=== PATIENT | female | born 1945 | race Caucasian/White ===

== ENCOUNTER 2020-03-12 19:08 | Observation (INO) | payer MEDICARE, OTHER ==
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
[2020-03-12 20:15] LABS: Basophils % (A) 1 %; Eosinophils # (A) 0.1 k/uL (0-0.7); Eosinophils % (A) 2 %; HCT 47.2 % (34.0-46.0); HGB 15.5 gm/dL (11.4-16.0); Lymphocytes % (A) 16 %; MCH 29.3 pg (25.0-35.0); MCHC 32.8 g/dL (31.0-37.0); MCV 89.3 fL (80.0-100.0); Mean Platelet Volume 8.3; Monocytes # (A) 0.3 k/uL (0-1.0); Monocytes % (A) 5 %; Neutrophils # (A) 4.9 k/uL (1.3-7.7); Neutrophils % (A) 76 %; Platelet Count 231 k/uL (150-450); RBC 5.29 m/uL (3.80-5.40); RDW 12.8 % (11.5-15.5); WBC 6.4 k/uL (3.8-10.6)
[2020-03-12 20:20] LABS: Appearance,Urine Cloudy (Clear); Bacteria,Urine Moderate /hpf; Bilirubin,Urine Negative (Negative); Blood,Urine Negative (Negative); Color,Urine Light Yellow; Glucose,Urine (UA) 4+ (Negative); Ketones,Urine 1+ (Negative); Leukocyte Esterase,Urine Large (Negative); Mucus,Urine Occasional /hpf; Nitrite,Urine Negative (Negative); Protein,Urine Negative (Negative); RBC,Urine 8 /hpf (0-5); Specific Gravity,Urine 1.026 (1.001-1.035); Squamous Epithelial Cell,Urine 1 /hpf (0-4); Urobilinogen,Urine <2.0 mg/dL (<2.0); WBC,Urine 162 /hpf (0-5)
[2020-03-12 20:24] LABS: African American GFR (CKD) >90 (>60 ml/min/1.73 sqM); Alcohol <10 mg/dL; Anion Gap 10 mmol/L; Blood Urea Nitrogen 16 mg/dL (7-17); Calcium 9.9 mg/dL (8.4-10.2); Carbon Dioxide 22 mmol/L (22-30); Chloride 102 mmol/L (98-107); Glucose 396 mg/dL (74-99); Non-African American GFR(CKD) 81 (>60 ml/min/1.73 sqM); Sodium 134 mmol/L (137-145)
[2020-03-12 20:29] LABS: Amphetamine Screen,Urine Not Detected (NotDetected); Barbiturate Screen,Urine Not Detected (NotDetected); Benzodiazepines Screen,Urine Not Detected (NotDetected); Cocaine Screen,Urine Not Detected (NotDetected); Methadone Screen, Urine Not Detected (NotDetected); Opiate Screen,Urine Not Detected (NotDetected); Oxycodone Screen, Urine Not Detected (NotDetected); Phencyclidine Screen,Urine Not Detected (NotDetected); Tricyclic Antidepressant,Urine Not Detected (NotDetected); Urn Cannabinoid Scrn Not Detected (NotDetected)
[2020-03-12] MEDS ORDERED: CEPHALEXIN 500 MG CAP PO STA (20:41)
[2020-03-12] MEDS ORDERED: cefTRIAXone IN SWFI 1,000 MG/10 ML SYRINGE IVP STA (20:58)
[2020-03-12] MEDS ORDERED: SODIUM CHLORIDE 0.9% 1,000 ML IV ONE (21:04)
[2020-03-12] MEDS ORDERED: ACETAMINOPHEN TAB 325 MG TAB PO PRN (21:51)
[2020-03-12] MEDS ORDERED: NALOXONE 0.4 MG/ML 1 ML VIAL IV PRN (21:51)
[2020-03-12] MEDS ORDERED: ONDANSETRON 4 MG/2 ML VIAL IVP PRN (21:51)
[2020-03-12] MEDS ORDERED: LORazepam 2 MG/ML INJ IV STA (22:34)
[2020-03-12 23:16] VITALS: RESP 16
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
[2020-03-13 02:12] LABS: Glucose,Whole Blood 260 mg/dL (75-99)
[2020-03-13] MEDS: INSULIN ASPART (NovoLOG) 100 UNIT/ML VIAL SQ SCH ×5 (02:22→17:11)
[2020-03-13 04:17] VITALS: BP 113/72; TEMP 98
[2020-03-13 08:04] LABS: Glucose,Whole Blood 271 mg/dL (75-99)
[2020-03-13] MEDS: HEPARIN SODIUM,PORCINE 5,000 UNIT/ML 1 ML VIAL SQ SCH ×3 (08:08→15:17)
[2020-03-13] MEDS: PANTOPRAZOLE 40 MG/10 ML VIAL IV SCH ×2 (08:08→08:18)
[2020-03-13] MEDS ORDERED: MULTIVITAMINS, THERA 1 EACH TAB PO SCH (09:00)
[2020-03-13 12:49] VITALS: PULSE 70
--- NOTE | 2020-03-13 14:00 | P.DS ---
Providers Date of admission: 03/12/20 20:53 Expected date of discharge: 03/13/20 Attending physician: Maia Jeronimo MD Consults: 03/12/20 21:51 Consult Physician Stat Consulting Provider: Macrina Hancock Consult Reason/Comments: Manic episode, uti Do you want consulting provider notified?: Yes Primary care physician: Stated None Hospital Course: This is a 74-year-old female who presented to the emergency room with acute psychosis and confusion. Patient was evaluated in the ER and was found to have uncomplicated UTI. She was started on IV ceftriaxone. Her overall condition improved significantly. She was seen and evaluated by psych. She will be transferred to the psych floor for further management. Urine cultures still pending. Would finish antibiotic course with oral Keflex. For further details about this hospitalization please refer to the electronic chart. Patient Condition at Discharge: Stable Plan - Discharge Summary Discharge Rx Participant: No New Discharge Prescriptions: New Cephalexin [Keflex] 500 mg PO Q6HR 3 Days #12 cap No Action Multivitamins, Thera [Multivitamin (formulary)] 1 tab PO DAILY Elderberry Vitamin (Unknown Strength) 1 tab PO DAILY Discharge Medication List Elderberry Vitamin (Unknown Strength) 1 tab PO DAILY 03/12/20 [History] Multivitamins, Thera [Multivitamin (formulary)] 1 tab PO DAILY 03/12/20 [History] Cephalexin [Keflex] 500 mg PO Q6HR 3 Days #12 cap 03/13/20 [Rx] Follow up Appointment(s)/Referral(s): None,Stated [Primary Care Provider] - 1-2 days Discharge Disposition: TRANSFER TO PSYCH HOSP/UNIT
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
[2020-03-13] MEDS ORDERED: ZIPRASIDONE 20 MG VIAL IM STA (19:57)
== END 2020-03-13 21:11 ==
LOC: SUPCPDRO 19:08 → EC 19:08 → 6NMEDSUR 20:53
PROVIDERS: ADMIT Internal Medicine; ATTEND Internal Medicine
DX: R41.0 Disorientation, unspecified (principal); F31.9 Bipolar disorder, unspecified; E11.9 Type 2 diabetes mellitus without complications; E66.3 Overweight; F23 Brief psychotic disorder; N39.0 Urinary tract infection, site not specified; Z87.891 Personal history of nicotine dependence; Z91.14 Patient's other noncompliance with medication regimen; Z91.19 Patient's noncompliance with other medical treatment and regimen; Z68.34 Body mass index [BMI] 34.0-34.9, adult
CPT/HCPCS: 96365; 96361; 96375; 99285; 36415; 80048; 85025; 81001; 80306; 87086; 87077; 87186; G0378 ×2; G0480; J0696 ×2; J3486; 80320

== ENCOUNTER 2020-03-13 18:43 | Inpatient (IN) | payer MEDICARE ==
[2020-03-13] MEDS ORDERED: ACETAMINOPHEN TAB 325 MG TAB PO PRN (20:58)
[2020-03-13] MEDS ORDERED: MAG HYDROX/AL HYDROX/SIMETH 30 ML CUP PO PRN (20:58)
[2020-03-13] MEDS ORDERED: MAGNESIUM HYDROXIDE 2,400 MG/10 ML CUP PO PRN (20:58)
[2020-03-13] MEDS ORDERED: LORazepam 1 MG TAB PO PRN (20:58)
[2020-03-14 01:00] LABS: Albumin 4.2 g/dL (3.5-5.0); Bilirubin, Delta 0.3 mg/dL (0.0-0.2); Bilirubin,Unconjugated 0.2 mg/dL (0.0-1.1); Total Bilirubin 0.5 mg/dL (0.2-1.3)
[2020-03-14 08:00] LABS: Glucose,Whole Blood 239 mg/dL (75-99)
[2020-03-14] MEDS: INSULIN ASPART (NovoLOG) 100 UNIT/ML VIAL SQ SCH ×4 (08:14→21:27)
[2020-03-14] MEDS ORDERED: MULTIVITAMINS, THERA 1 EACH TAB PO SCH (09:00)
[2020-03-14] MEDS: MULTIVITAMINS, THERA 1 EACH TAB PO SCH (10:11)
[2020-03-14 12:46] LABS: Glucose,Whole Blood 260 mg/dL (75-99)
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
[2020-03-14 18:12] LABS: Hemoglobin A1C 12.3 % (4.0-6.0)
[2020-03-14 18:26] LABS: Glucose,Whole Blood 227 mg/dL (75-99)
--- NOTE | 2020-03-14 18:30 | P.MDCNMH ---
History of Present Illness H&P Date: 03/14/20 This is a 74-year-old female who presented to the emergency room with acute psychosis and confusion on March 12. Patient was evaluated in the ER and was found to have uncomplicated UTI. She was admitted to the medical unit for treatment. She was started on IV ceftriaxone. Her overall condition improved significantly. She was seen and evaluated by psych. She was transferred to the psych floor for further management on March 13. Patient was seen in the mental health unit. Patient has flight of ideas and is unable to effectively communicate. She denies any abdominal pain. She denies any chest pain, shortness breath or palpitations. No nausea or vomiting. No fever or chills. Review of lab work shows A1c of 12.3. Lipid panel shows triglyceride of 258, total cholesterol 250, LDL 142. TSH is 0.223. Review of Systems Pertinent positives and negatives as discussed in HPI, a complete review of systems was performed and all other systems are negative. Past Medical History Past Medical History: Unable to Obtain, Diabetes Mellitus Additional Past Medical History / Comment(s): Previously on metformin, but reportedly non compliant. History of Any Multi-Drug Resistant Organisms: Unobtainable Past Surgical History: Unable to Obtain Past Psychological History: Unable to Obtain Smoking Status: Unknown if ever smoked Past Alcohol Use History: None Reported Past Drug Use History: None Reported - Past Family History Mother Family Medical History: Unable to Obtain Father Family Medical History: Unable to Obtain Medications and Allergies Home Medications Medication Instructions Recorded Confirmed Type Elderberry Vitamin (Unknown 1 tab PO DAILY 03/12/20 03/13/20 History Strength) Multivitamins, Thera [Multivitamin 1 tab PO DAILY 03/12/20 03/13/20 History (formulary)] Cephalexin [Keflex] 500 mg PO Q6HR 3 Days #12 cap 03/13/20 03/13/20 Rx Allergies Allergy/AdvReac Type Severity Reaction Status Date / Time No Known Allergies Allergy Verified 03/13/20 21:00 Physical Exam Vitals: Vital Signs Temp Pulse Resp BP Pulse Ox 03/13/20 21:10 97.6 F 98 16 138/62 94 L General: [non toxic], [no distress], [appears at stated age] Derm: [warm], [dry] Head: [atraumatic], [normocephalic], [symmetric] Eyes: [EOMI], [no lid lag], [anicteric sclera] Mouth: [no lip lesion], [mucus membranes moist] Cardiovascular: [S1S2 reg], [no murmur], [positive DP pulse bilateral], Lungs: [CTA bilateral], [no rhonchi, no rales] , [no accessory muscle use] Abdominal: [soft], [ nontender to palpation], [no guarding], [no appreciable organomegaly] Ext: [no gross muscle atrophy], [no edema], [no contractures] Neuro: [Uncooperative] Psych: [Alert], [oriented], [flight of ideas] Cranial Nerve Examination - Cranial Nerves Cranial Nerve II- Optic: Intact Cranial Nerve III- Oculomotor: Intact Cranial Nerve IV- Trochlear: Intact Cranial Nerve V- Trigeminal: Intact Cranial Nerve - Abducens: Intact Cranial Nerve VII- Facial: Intact Cranial Nerve VIII- Auditory: Intact Cranial Nerve IX- Glossopharyngeal: Intact Cranial Nerve X- Vagus: Intact Cranial Nerve XI- Accessory: Intact Cranial Nerve XII- Hypoglossal: Intact Results Labs: Abnormal Lab Results - Last 24 Hours (Table) 03/12/20 03/12/20 03/14/20 Range/Units 20:05 20:05 07:57 POC Glucose (mg/dL) 239 H (75-99) mg/dL Hemoglobin A1c 12.3 H (4.0-6.0) % Delta Bilirubin 0.3 H (0.0-0.2) mg/dL Alkaline Phosphatase 142 H (38-126) U/L Triglycerides 258 H (<150) mg/dL Cholesterol 250 H (<200) mg/dL LDL Cholesterol, Calc 142 H (0-99) mg/dL TSH 0.223 L (0.465-4.680) mIU/L 03/14/20 Range/Units 12:42 POC Glucose (mg/dL) 260 H (75-99) mg/dL Hemoglobin A1c (4.0-6.0) % Delta Bilirubin (0.0-0.2) mg/dL Alkaline Phosphatase (38-126) U/L Triglycerides (<150) mg/dL Cholesterol (<200) mg/dL LDL Cholesterol, Calc (0-99) mg/dL TSH (0.465-4.680) mIU/L Assessment and Plan Assessment: UTI Diabetes mellitus with hyperglycemia Dyslipidemia Low TSH Patient's urine culture shows gram-negative bacilli. Urine cultures pending. Received Rocephin on the medical unit. Continue Bactrim for 2 more days. Patient has been placed on insulin sliding scale. Apparently, she has been refusing her insulin. Continue regular Accu-Cheks. Hypoglycemic precautions. Patient would benefit from dietary modification. She would also benefit from a statin. We will defer this decision to her PCP. Her TSH is low. Free T4 is pending. Thank you for this consult. Please call with any additional questions or concerns.
[2020-03-14 20:17] LABS: Glucose,Whole Blood 297 mg/dL (75-99)
[2020-03-14] MEDS: SULFAMETHOX-TMP 800-160MG 1 EACH TAB PO SCH (21:29)
[2020-03-15 08:01] LABS: Glucose,Whole Blood 259 mg/dL (75-99)
[2020-03-15] MEDS: INSULIN ASPART (NovoLOG) 100 UNIT/ML VIAL SQ SCH ×4 (08:06→20:35)
[2020-03-15] MEDS: SULFAMETHOX-TMP 800-160MG 1 EACH TAB PO SCH ×3 (08:08→20:36)
[2020-03-15] MEDS: MULTIVITAMINS, THERA 1 EACH TAB PO SCH (08:08)
--- NOTE | 2020-03-15 11:26 | P.PN ---
Progress Note - Text Progress Note Date: 03/15/20 I reviewed medical records ,did interview patient and case was discussed in treatment team LABS: Review of lab work shows A1c of 12.3. Lipid panel shows triglyceride of 258, total cholesterol 250, LDL 142. TSH is 0.223. I reviewed medical consult ASSESSMENT (((:UTI Diabetes mellitus with hyperglycemia Dyslipidemia Low TSH Patient's urine culture shows gram-negative bacilli. Urine cultures pending. Received Rocephin on the medical unit. Continue Bactrim for 2 more days. Patient has been placed on insulin sliding scale. Apparently, she has been refusing her insulin. Continue regular Accu-Cheks. Hypoglycemic precautions. Patient would benefit from dietary modification. She would also benefit from a statin. We will defer this decision to her PCP. Her TSH is low. Free T4 is pending.)) Patient is non compliant with Tx for her medical problems ,refusing Insulin ,refusing to watch her diet,her blood glucose today 259,she refused her Bactrim and Insulin this morning Interval history: Patient was pushing her wheel chair ,stated that she has to be discharged because she is not "Aline Pauline",stated that she needs to contact criminal attorney to advocate for her ,stated that there is conspiracy against her to lock her here so "I can not advocate for mentally ill people" Mental status exam: Patient was wearing hospital gown, fair grooming and hygiene, good eyes contact ,hyperverbal ,circumstantial ,loose of association ,illogical ,stated mood "I just want to go home"affect is irritable ,reports persecutory delusion ,suspicious ,paranoia, denies any hallucination ,denies any suicidal or homicidal ideation ,very concrete in her thinking insight and judgment are impaired ASSESSMENT:Bipolar disorder ,manic with psychotic feature ,poor compliance with medication PLAN: Patient continues to meet criteria for inpatient psychiatric admission for symptom stabilization and safety. PRN medications till deferral meeting and probate court
[2020-03-15 17:55] LABS: Glucose,Whole Blood 269 mg/dL (75-99)
[2020-03-16] MEDS: INSULIN ASPART (NovoLOG) 100 UNIT/ML VIAL SQ SCH ×3 (08:13→22:04)
[2020-03-16] MEDS: MULTIVITAMINS, THERA 1 EACH TAB PO SCH (08:15)
[2020-03-16] MEDS: SULFAMETHOX-TMP 800-160MG 1 EACH TAB PO SCH (08:16)
--- NOTE | 2020-03-16 12:10 | PN ---
PROGRESS NOTE DATE OF SERVICE: 03/16/2020 CHIEF COMPLAINT: The patient was admitted on petition completed by her due to the patient being agitated, having disorganized behavior and having delusions. INTERVAL HISTORY: Patient continues to be quite intense in her manner. Yesterday she was out on the unit. She showed elevated mood. She would talk randomly to people. She would make comments that were disconnected from things going on around her. She attended one group. There was a note from group staff as follows "the patient required additional verbal prompts in order to appropriately participate in group. The patient was redirectable." She slept 5 hours last night. Staff noted that at one point she spent quite a bit of time in the bathroom "puttering" where she seemed to keep herself busy without doing anything that was clearly productive. Today she has been up. She continues to be fairly intense in her manner. Her mood is elevated. She is hyperverbal. She does respond to staff support. She has been cooperative with care, though continues to decline taking any regular medications. MENTAL STATUS: Patient was in her wheelchair. She gave fair eye contact. She was quite restless. She answered questions with direct responses, though typically she would veer off and make comments that were disconnected from the subject at hand. Her mood was elevated. She had some level of distress relating to her manic symptoms. She did not clearly present with psychotic symptoms. She voiced no thoughts of harm. On cognitive exam she was oriented x3 and alert. She was able to give details of recent events that were consistent with what was documented in the medical record. ASSESSMENT: I will continue the current diagnosis and treatment plan. We will continue to make efforts to engage the patient in individual and group therapeutic activities. I strongly encouraged the patient to consider getting started on oral medications to help advance her welfare and health condition. I reviewed her situation in regard to involuntary treatment process. We will focus on stabilization and discharge planning. STELLA / JOSE: [id number] /
[2020-03-17] MEDS: INSULIN ASPART (NovoLOG) 100 UNIT/ML VIAL SQ SCH ×3 (08:26→13:47)
[2020-03-17] MEDS: MULTIVITAMINS, THERA 1 EACH TAB PO SCH (09:02)
[2020-03-18] MEDS: INSULIN ASPART (NovoLOG) 100 UNIT/ML VIAL SQ SCH ×6 (08:13→20:17)
[2020-03-18] MEDS: MULTIVITAMINS, THERA 1 EACH TAB PO SCH (09:55)
--- NOTE | 2020-03-18 10:59 | PN ---
PROGRESS NOTE DATE OF SERVICE: 03/17/2020 CHIEF COMPLAINT: The patient was admitted on petition completed by her due to the patient being agitated, having disorganized behavior and having delusions. INTERVAL HISTORY: The patient is doing the same as she has been doing. She is adamant about not taking any medications. She wanders about the unit. She has some ups and downs in her mood, she was relatively stable yesterday in her own realm of things. She has no insight regarding her situation. She did attend groups yesterday. Sometimes she needs some redirection to stay on track. She slept fairly well. Today, she has been up. She wanders around the unit in her wheelchair. She often makes random comments much of the time and does not seem to connect with things going on around her. She has not attended groups today. She continues to be adamant about not taking medications. The court issues were addressed with the patient. MENTAL STATUS: Patient did not give much eye contact. She would not come into the office. She kept wheeling herself around the [place]ola when I tried to talk to her. She made various random comments. She answered a few questions, though most of the time she made statements that were tangential to anything at hand. She had an intense affect. Her mood was elevated. She did not appear to be distressed. She shows likely psychotic symptoms with disorganized thought process. It was difficult to assess any thoughts of harm that she might have. She was oriented to circumstances and surroundings. She does have a basic orientation. ASSESSMENT: I will continue the current diagnosis and treatment plan. A demand has been put in place with anticipation of her going to court due to a refusal to take medications based on her petition and deferral. We will assess medication issues once the court order is in place. We do have p.r.n. medications available for any situations where she would be a risk for harming herself or others. MMODL / IJN: [id number] /
--- NOTE | 2020-03-18 11:26 | P.PN ---
Progress Note - Text Progress Note Date: 03/18/20 I reviewed medical records ,did interview patient and case was discussed in treatment team Patient refusing her Insulin ,refusing Glucose check since 03/15,did sign deferral but refusing medications ,demand hearing on 03/27 VITALS: Temp:98.6,Pulse:97,BP:167?79 Interval history: Patient was pushing her wheel chair ,was trying to call her to pick her up saying "It is a shame because I do not belong to this place ",stated that she is not diabetic that is why she is refusing Accu-check as well her Insulin ,does not have insight to complication of uncontrolled diabetes Mental status exam: Patient was wearing hospital gown, fair grooming and hygiene, good eyes contact ,hyperverbal ,circumstantial ,loose of association ,illogical ,stated mood "Disgusted""affect is irritable ,reports persecutory delusion ,suspicious ,paranoia, denies any hallucination ,denies any suicidal or homi cidal ideation ,very concrete in her thinking insight and judgment are impaired ASSESSMENT:Bipolar disorder ,manic with psychotic feature ,poor compliance with medication PLAN: Patient continues to meet criteria for inpatient psychiatric admission for symptom stabilization and safety. PRN medications till demand hearing . Order T4 as THS is low
[2020-03-18 20:13] LABS: Glucose,Whole Blood 395 mg/dL (75-99)
[2020-03-19] MEDS: INSULIN ASPART (NovoLOG) 100 UNIT/ML VIAL SQ SCH ×4 (08:16→21:05)
[2020-03-19] MEDS: MULTIVITAMINS, THERA 1 EACH TAB PO SCH (09:17)
--- NOTE | 2020-03-19 09:44 | P.PN ---
Progress Note - Text Progress Note Date: 03/19/20 I reviewed medical records ,did interview patient and case was discussed in treatment team Patient refusing her Insulin ,refusing Glucose check since 03/15,did sign deferral but refusing medications ,demand hearing on " Interval history: rPatient sitting on wheel chair but able to ambulate ,loud ,demanding to go home ,stated "This place is mistake and you are not doctor " ,was trying to call her to pick her up saying "It is a shame because I do not belong to this place ",stated that she is not diabetic that is why she is refusing Accu-check as well her Insulin ,does not have insight to complication of uncontrolled diabetes Mental status exam: Patient was wearing hospital gown, fair grooming and hygiene, good eyes contact ,hyperverbal ,circumstantial ,loose of association ,illogical ,stated mood "frustrated"affect is irritable ,reports persecutory delusion ,suspicious ,paranoia, denies any hallucination ,denies any suicidal or homicidal ideation ,very concrete in her thinking insight and judgment are impaired ASSESSMENT:Bipolar disorder ,manic with psychotic feature ,poor compliance with medication PLAN: Patient continues to meet criteria for inpatient psychiatric admission for symptom stabilization and safety. PRN medications till demand hearing .
[2020-03-19] MEDS: ZIPRASIDONE 20 MG VIAL IM PRN (12:12)
[2020-03-19] MEDS: LORazepam 2 MG/ML INJ IM PRN (12:13)
[2020-03-19 12:47] LABS: Glucose,Whole Blood 263 mg/dL (75-99)
[2020-03-19] MEDS: TORSEMIDE 20 MG TAB PO SCH (13:29)
[2020-03-19] MEDS: LINAGLIPTIN 5 MG TABLET PO SCH (13:29)
[2020-03-19 16:47] LABS: African American GFR (CKD) >90 (>60 ml/min/1.73 sqM); Anion Gap 5 mmol/L; Blood Urea Nitrogen 15 mg/dL (7-17); Calcium 9.2 mg/dL (8.4-10.2); Carbon Dioxide 26 mmol/L (22-30); Chloride 102 mmol/L (98-107); Glucose 309 mg/dL (74-99); Magnesium 1.8 mg/dL (1.6-2.3); Non-African American GFR(CKD) 86 (>60 ml/min/1.73 sqM); Potassium 4.5 mmol/L (3.5-5.1); Sodium 133 mmol/L (137-145)
[2020-03-19 17:04] LABS: T4, Free (Free Thyroxine) 1.97 ng/dL (0.78-2.19)
[2020-03-19 17:56] LABS: Glucose,Whole Blood 274 mg/dL (75-99)
[2020-03-19] MEDS: metFORMIN 500 MG TAB PO SCH (18:28)
[2020-03-20] MEDS: INSULIN ASPART (NovoLOG) 100 UNIT/ML VIAL SQ SCH ×4 (09:10→21:14)
[2020-03-20] MEDS: metFORMIN 500 MG TAB PO SCH ×2 (09:10→19:54)
[2020-03-20] MEDS: LINAGLIPTIN 5 MG TABLET PO SCH (09:10)
[2020-03-20] MEDS: MULTIVITAMINS, THERA 1 EACH TAB PO SCH (09:10)
[2020-03-20] MEDS: TORSEMIDE 20 MG TAB PO SCH (09:11)
--- NOTE | 2020-03-20 09:19 | P.PN ---
Progress Note - Text Progress Note Date: 03/20/20 I reviewed medical records ,did interview patient and case was discussed in treatment team On 03/19 at noon patient was in front of nursing station yelling ,screaming ,very argumentative ,refusing her Insulin and Accu-check ,was given IM 1 mg Ativan Patient was slightly more cooperative after Ativan as she agreed to take her Glucophage but not the Insulin or diueretic "Demadex' SLEEP: did not sleep last night ,no participation in group LABS: blood glucose on 03/19 at 17:45 was 274 T4 :normal TODAY VITALS: Temp:98.5,P:85,R:16,BP:177/88 Interval history: rPatient sitting on wheel chair but able to ambulate ,loud ,demanding to go home ,stated that this placed has to be closed as "You are making money from people ,I do believe in holistic medicine",patient is not easy to redirect and refused her accu-check this morning Mental status exam: Patient was wearing hospital gown, fair grooming and hygiene, good eyes contact ,hyperverbal ,circumstantial ,loose of association ,illogical ,stated mood "frustrated"affect is irritable ,reports persecutory delusion ,suspicious ,paranoia, denies any hallucination ,denies any suicidal or homicidal ideation ,very concrete in her thinking insight and judgment are impaired ASSESSMENT:Bipolar disorder ,manic with psychotic feature ,poor compliance with medication PLAN: Patient continues to meet criteria for inpatient psychiatric admission for symptom stabilization and safety. PRN medications till demand hearing .
[2020-03-20] MEDS: LORazepam 2 MG/ML INJ IM PRN (14:41)
--- NOTE | 2020-03-20 18:48 | P.PN ---
Progress Note - Text Progress Note Date: 03/20/20 Called nursing patient not appropriate to see at this time. Refusing ECHO, all meds and to have blood sugar checked. Upset and cannot provide meaningful history.
[2020-03-21] MEDS: TORSEMIDE 20 MG TAB PO SCH (07:50)
[2020-03-21] MEDS: metFORMIN 500 MG TAB PO SCH ×2 (07:50→20:35)
[2020-03-21] MEDS: MULTIVITAMINS, THERA 1 EACH TAB PO SCH (07:50)
[2020-03-21] MEDS: LINAGLIPTIN 5 MG TABLET PO SCH (07:51)
[2020-03-21] MEDS: INSULIN ASPART (NovoLOG) 100 UNIT/ML VIAL SQ SCH ×4 (07:51→20:57)
--- NOTE | 2020-03-21 10:18 | P.PN ---
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 Refusing ECHO, all meds and to have blood sugar checked. Upset and cannot provide meaningful history. )) RN NOTE : ((Pt up throughout the night. Pt up in her wheelchair talking to staff and peers. Pt required several verbal redirections to keep voice low. Pt up majority of the shift. Pt hyperverbal and requires several verbal redirections to lower voice. Pt continues to make nonsensical statements. Safety maintained with 15 minute safety checks. no concerns expressed. Initialized on 03/20/20 03:00)) SW NOTE((T/C from pt's son. This hand sign writer explained that w/o a release I cannot give any information. Son states that he has an appointment tomorrow to speak to someone r/t guardianship. Son states he will be coming in to drop some items off for pt. Will continue to f/u as appropriate)) Interval history: Patient sitting on wheel chair but able to ambulate ,loud ,saying "I did erase you from my file I want my Doctor DR [facility]" when I told her he is affiliated with the hospital ,she did get angry saying "HE IS THE KATHERINE OF [facility]" Mental status exam: Patient was wearing hospital gown, poor grooming and hygiene, good eyes contact ,hyperverbal ,circumstantial ,loose of association ,illogical ,stated mood "frustrated"affect is irritable ,bizarre delusion ,suspicious ,paranoia, denies any hallucination ,denies any suicidal or homicidal ideation ,very concrete in her thinking insight and judgment are impaired ASSESSMENT:Bipolar disorder ,manic with psychotic feature ,poor compliance with medication PLAN: Patient continues to meet criteria for inpatient psychiatric admission for symptom stabilization and safety. PRN medications till demand hearing .on 03/27
[2020-03-21] MEDS: LORazepam 2 MG/ML INJ IM SCH (22:20)
[2020-03-22] MEDS: INSULIN ASPART (NovoLOG) 100 UNIT/ML VIAL SQ SCH ×4 (08:11→21:24)
--- NOTE | 2020-03-22 09:34 | P.PN ---
Progress Note - Text Progress Note Date: 03/22/20 I reviewed medical records ,did interview patient and case was discussed in treatment team Patient is refusing all her medications ,did refuse Glucophage and Insulin ,refusing Accu-check ,refused Echo ordered by medical doctor Did not sleep last night and refused Ativan RN NOTE: ((As of 601; pt has not slept at all during the night. Pt has been in a w/c alternating between being in her room and in the hallway at the Nurse's Desk. Pt is loud, irritable, sarcastic and attention seeking. Pt was given a pen and paper, asked to write down all her thoughts and requests, and present them to the Desk hourly, instead of every 5-10 minutes /c the goal of organizing her thoughts. Interval history: Patient sitting on wheel chair but able to ambulate ,loud ,saying "You are fired ,I am calling [facility] and now I do belong to [facility] doctor ",patient is irritable ,when I asked why she is refusing her medications for Diabetes and diuertic she replied with loud voice "You do not understand I am not diabetic ,I just need my Vitamin" Mental status exam: Patient was wearing hospital gown, poor grooming and hygiene, good eyes contact ,hyperverbal ,circumstantial ,loose of association ,illogical ,stated mood "frustrated"affect is irritable ,, denies any hallucination ,denies any suicidal or homicidal ideation ,very concrete in her thinking insight and judgment are impaired ASSESSMENT:Bipolar disorder ,manic with psychotic feature ,poor compliance with medication PLAN: Patient continues to meet criteria for inpatient psychiatric admission for symptom stabilization and safety. PRN medications till demand hearing .on 03/27
[2020-03-22] MEDS: metFORMIN 500 MG TAB PO SCH ×2 (09:40→18:04)
[2020-03-22] MEDS: MULTIVITAMINS, THERA 1 EACH TAB PO SCH (09:40)
[2020-03-22] MEDS: TORSEMIDE 20 MG TAB PO SCH (09:44)
[2020-03-22] MEDS: LINAGLIPTIN 5 MG TABLET PO SCH (09:44)
[2020-03-22 20:00] LABS: Glucose,Whole Blood 302 mg/dL (75-99)
[2020-03-22] MEDS: LORazepam 2 MG/ML INJ IM SCH (21:24)
[2020-03-23] MEDS: INSULIN ASPART (NovoLOG) 100 UNIT/ML VIAL SQ SCH ×4 (09:31→20:35)
[2020-03-23] MEDS: LINAGLIPTIN 5 MG TABLET PO SCH (09:31)
[2020-03-23] MEDS: TORSEMIDE 20 MG TAB PO SCH (09:32)
[2020-03-23] MEDS: metFORMIN 500 MG TAB PO SCH ×2 (09:32→17:45)
[2020-03-23] MEDS: MULTIVITAMINS, THERA 1 EACH TAB PO SCH (09:32)
--- NOTE | 2020-03-23 16:53 | P.PN ---
Progress Note - Text Progress Note Date: 03/23/20 Subjective: Patient was seen today as a cross coverage for Dr. Hancock. The patient was evaluated, chart reviewed, case discussed with the treatment team. Patient refuses to talk to me and addresses that she wants to talk to a female doctors only. Patient was very irritable and loud. Nursing report patient has no sleep problems and she ate all her meals. Patient continues to be demanding, very irritable, and he refused all her medications as per nursing. No report of suicidal or homicidal ideation. Objective: Vitals has been reviewed. Mental status examination; Appearance, and gait: The patient appears stated age, poorly groomed and dressed, and she was on wheelchair. Attitude and behavior: Not engaged, not cooperative, no eye contact. Motor activity: Psychomotor agitation Speech: Loud Mood: Anxious, irritable Affect: Increased intensity Thought form: Decreased thoughts Thought content: No report of delusions, suicidal or homicidal ideation. Perception: No report of hallucinations. Attention: Patient refused assessment Orientation: Patient refused assessment Insight: Patient has fair insight about poor psychiatric disorder. Judgment: Patient has fair judgment about poor psychiatric treatment. Assessment: Bipolar disorder, most recent episode manic with psychotic features. Plan: Continue inpatient level of care due to gait for further stabilization Precautions: Continue 15 minutes check for safety. Consider medical consultation if any acute medical issues arise. Provide the patient individual, group therapy, substance use disorder counseling to give better insight and learn coping skills. Medications: Patient continues to refuse treatment including medications. Continue as needed medications for psychiatric emergencies including psychosis, agitation and anxiety. Continue non-psychiatric medications for medical conditions as recommended by the medical team. Discharge patient to OUTPATIENT services upon a stabilization
[2020-03-23] MEDS: LORazepam 2 MG/ML INJ IM SCH (20:36)
[2020-03-24] MEDS: LINAGLIPTIN 5 MG TABLET PO SCH (07:46)
[2020-03-24] MEDS: TORSEMIDE 20 MG TAB PO SCH (07:46)
[2020-03-24] MEDS: MULTIVITAMINS, THERA 1 EACH TAB PO SCH (07:47)
[2020-03-24] MEDS: metFORMIN 500 MG TAB PO SCH ×2 (07:47→17:59)
[2020-03-24] MEDS: INSULIN ASPART (NovoLOG) 100 UNIT/ML VIAL SQ SCH ×4 (07:47→20:19)
--- NOTE | 2020-03-24 14:09 | P.PN ---
Progress Note - Text Progress Note Date: 03/24/20 Subjective: Patient was seen today as a cross coverage for Dr. Hancock. The patient was evaluated, chart reviewed, case discussed with the treatment team. Patient continues refusing talking to me today and states "I want a white man or white woman ". As per nursing she continues to present irritable and loud and has minimal communication with others. No reports of a sleep problem and patient ate on her meals. Patient continues to refuse taking any psychiatric medications, but no reports of suicidal or homicidal ideation. Objective: Vitals has been reviewed. Mental status examination; Appearance, and gait: The patient appears stated age, poorly groomed and dressed, and she was on wheelchair. Attitude and behavior: Not engaged, not cooperative, no eye contact. Motor activity: Psychomotor agitation Speech: Loud Mood: Anxious, irritable Affect: Increased intensity Thought form: Decreased thoughts Thought content: No report of delusions, suicidal or homicidal ideation. Perception: No report of hallucinations. Attention: Patient refused assessment Orientation: Patient refused assessment Insight: Patient has fair insight about poor psychiatric disorder. Judgment: Patient has fair judgment about poor psychiatric treatment. Assessment: Bipolar disorder, most recent episode manic with psychotic features. Plan: Continue inpatient level of care due to gait for further stabilization Precautions: Continue 15 minutes check for safety. Consider medical consultation if any acute medical issues arise. Provide the patient individual, group therapy, substance use disorder counseling to give better insight and learn coping skills. Medications: Patient continues to refuse treatment including medications. Consider court hearing, and encourage patient for better engagement in treatment Continue as needed medications for psychiatric emergencies including psychosis, agitation and anxiety. Continue non-psychiatric medications for medical conditions as recommended by the medical team. Discharge patient to OUTPATIENT services upon a stabilization
[2020-03-24] MEDS: LORazepam 2 MG/ML INJ IM SCH (20:20)
[2020-03-25] MEDS: INSULIN ASPART (NovoLOG) 100 UNIT/ML VIAL SQ SCH ×2 (09:20→12:47)
[2020-03-25] MEDS: metFORMIN 500 MG TAB PO SCH (09:20)
[2020-03-25] MEDS: LINAGLIPTIN 5 MG TABLET PO SCH (09:21)
[2020-03-25] MEDS: TORSEMIDE 20 MG TAB PO SCH (09:21)
[2020-03-25] MEDS: MULTIVITAMINS, THERA 1 EACH TAB PO SCH (09:21)
--- NOTE | 2020-03-25 10:06 | P.PN ---
Progress Note - Text Progress Note Date: 03/25/20 I reviewed medical records ,did interview patient and case was discussed in treatment team Patient is refusing all her medications ,this morning she refused vitals and Accucheck Last glucose was on 03/22 ,was 302 Slept 3 hours Interval history: Patient sitting on wheel chair but able to ambulate ,loud , stated "You making money from my insurance ,you saw me since I came ,you charging my insurance at least 50 dollar an hour ,you are rich because of me ",still refusing any medications ,no insight to her medical illness and needs to be compliant with vitals and accucheck "I have patient recipient right to refuse all these" Mental status exam: Patient was wearing hospital gown, poor grooming and hygiene, good eyes contact ,hyperverbal ,circumstantial ,loose of association ,illogical ,irritable,intrusive ,and lot of grandiose comment ,, denies any hallucination ,denies any suicidal or homicidal ideation ,very concrete in her thinking insight and judgment are impaired ASSESSMENT:Bipolar disorder ,manic with psychotic feature ,poor compliance with medication PLAN: Patient continues to meet criteria for inpatient psychiatric admission for symptom stabilization and safety. PRN medications till demand hearing .on 03/27
[2020-03-25 17:19] LABS: Glucose,Whole Blood 237 mg/dL (75-99)
[2020-03-26 08:10] LABS: Glucose,Whole Blood 288 mg/dL (75-99)
[2020-03-26] MEDS: INSULIN ASPART (NovoLOG) 100 UNIT/ML VIAL SQ SCH ×5 (08:19→20:27)
[2020-03-26] MEDS: metFORMIN 500 MG TAB PO SCH ×3 (08:20→17:24)
[2020-03-26] MEDS: MULTIVITAMINS, THERA 1 EACH TAB PO SCH (08:21)
[2020-03-26] MEDS: LINAGLIPTIN 5 MG TABLET PO SCH ×2 (08:21→09:20)
[2020-03-26] MEDS: TORSEMIDE 20 MG TAB PO SCH (09:21)
--- NOTE | 2020-03-26 09:52 | P.PN ---
Progress Note - Text Progress Note Date: 03/26/20 I reviewed medical records ,did interview patient and case was discussed in treatment team Patient is refusing all her medications including her Insulin Slept 4 hours ,minimal participation in milieu RN NOTE:([id number] pt had two consecutive high blood sugars, 237 at HS, 288 in the morning, pt refuses Novolog sliding scale, pt takes Metformin as ordered, Sound notified no new orders provided Interval history: Patient sitting on wheel chair but able to ambulate ,loud , stated "you have to discharge to [facility] ,I do not need any medication ,I do believe in holistic med,"when I told her that she has to be compliant with medications including Insulin ,she got irritable and said "YOU ARE FIRED AGAIN" Mental status exam: Patient was wearing hospital gown, poor grooming and hygiene, good eyes contact ,hyperverbal ,circumstantial ,loose of association ,illogical ,irritable,intrusive ,and lot of grandiose comment ,, denies any hallucination ,denies any suicidal or homicidal ideation ,very concrete in her thinking insight and judgment are impaired ASSESSMENT:Bipolar disorder ,manic with psychotic feature ,poor compliance with medication Uncontrolled Diabetes ,Hypertension PLAN: Patient continues to meet criteria for inpatient psychiatric admission for symptom stabilization and safety. PRN medications till demand hearing .on 03/27
[2020-03-26] MEDS: LORazepam 2 MG/ML INJ IM SCH ×2 (11:37→21:15)
[2020-03-27] MEDS: LINAGLIPTIN 5 MG TABLET PO SCH (09:00)
[2020-03-27] MEDS: INSULIN ASPART (NovoLOG) 100 UNIT/ML VIAL SQ SCH ×4 (09:00→20:41)
[2020-03-27] MEDS: TORSEMIDE 20 MG TAB PO SCH (09:00)
[2020-03-27] MEDS: MULTIVITAMINS, THERA 1 EACH TAB PO SCH (09:01)
[2020-03-27] MEDS: metFORMIN 500 MG TAB PO SCH ×2 (09:01→18:06)
--- NOTE | 2020-03-27 12:41 | P.PN ---
Progress Note - Text Progress Note Date: 03/27/20 I reviewed medical records ,did interview patient and case was discussed in treatment team Glucose :288 ,refused Insulin ,took Metformin ,refused diuretic Patient did not sleep last night According to yesterday note from group((Pt required multiple redirections to participate in group activity appropriately. Pt was inconsistently redirectable. Pt continued to speak over lyric writer and peers and was directed to leave AT room. Pt refused to leave AT room. Pt was escorted out of AT room. [ End ] Probate court hearing was 10:30 ,patient was irritable ,saying to puppet master "mistaken identity as name on petition is different that her name ",stated that she wants to be discharged to [facility],court decided [place] for inpatient and outpatient and patient has to take medications for her mental and physical problem Interval history: Patient was pushing her wheel chair ,stated that she has to be discharged saying "You lied to puppet master ,I am not taking Insulin it is for women ,"then she got irritable and agitated saying "You need to be evaluated by psychiatrist ,you are not competent"then she refused any discussion about psychotropic medication Mental status exam: Patient was wearing hospital gown, fair grooming and hygiene, good eyes contact ,hyperverbal ,circumstantial ,loose of association ,illogical ,stated mood "I just want to go home"affect is irritable ,reports delusion ,suspicious ,paranoia, denies any hallucination ,denies any suicidal or homicidal ideation ,very concrete in her thinking insight and judgment are impaired ASSESSMENT:Bipolar disorder ,manic with psychotic feature ,poor compliance with medication PLAN: Patient is on court order for [place] .start Invega 6 mg and transition to long acting injection ,PRN Ativan and Geodon ,medical management for her Diabetes and legs swollen,patient does require inpatient hospitalization for safety and stabilization
[2020-03-27] MEDS: PALIPERIDONE 6 MG TAB.ER.24 PO SCH (20:34)
[2020-03-27] MEDS: LORazepam 2 MG/ML INJ IM SCH (20:41)
[2020-03-28] MEDS: ZIPRASIDONE 20 MG VIAL IM PRN ×2 (00:04→22:29)
[2020-03-28] MEDS: LORazepam 2 MG/ML INJ IM PRN (00:04)
[2020-03-28] MEDS: INSULIN ASPART (NovoLOG) 100 UNIT/ML VIAL SQ SCH ×4 (08:22→22:30)
[2020-03-28 08:26] LABS: Glucose,Whole Blood 227 mg/dL (75-99)
--- NOTE | 2020-03-28 09:37 | P.PN ---
Progress Note - Text Progress Note Date: 03/28/20 I reviewed medical records ,did interview patient and case was discussed in treatment team On 03/28 at 1 AM : RN NOTES : Pt has been at the desk demanding, yelling, irritable. Unable to re-direct despite several attempts. Pt continues yelling that staff are trying to murder her and screamed down the mendiola "You're trying to kill old people! You've already killed a couple!" Pt redirected back to her room where she continues to scream and disturb the unit. PRN IM Ativan and Geodon given with security assistance. )) This morning : Glucose 227,received 3 units Insulin Interval history: Patient was laying in bed ,stated that she is tired ,paranoia and suspicious ,incontinent of urine ,did take her Invega 6 mg HS but refused Demadex and Tradjenta,did not participate in any group ,was irritable ,resistant and demanding yesterday especially after probate court hearing Mental status exam: Patient was wearing hospital gown, poor grooming and hygiene,patient was dozing ,not able to participate in session ,, despite she seems sleepy she was asking me to bring her breakfast to her room ,insight and judgment are impaired ASSESSMENT:Bipolar disorder ,manic with psychotic feature ,poor compliance with medication PLAN: Patient is on court order for [place] .start Invega 6 mg and transition to long acting injection ,PRN Ativan and Geodon ,medical management for her Diabetes and legs swollen,patient does require inpatient hospitalization for safety and stabilization Start Invega sustenna
[2020-03-28] MEDS: metFORMIN 500 MG TAB PO SCH ×2 (09:55→17:29)
[2020-03-28] MEDS: MULTIVITAMINS, THERA 1 EACH TAB PO SCH (09:55)
[2020-03-28] MEDS: TORSEMIDE 20 MG TAB PO SCH (10:44)
[2020-03-28] MEDS: LINAGLIPTIN 5 MG TABLET PO SCH (10:44)
[2020-03-28 13:30] LABS: Glucose,Whole Blood 367 mg/dL (75-99)
[2020-03-28 15:55] VITALS: BMI 34.6
[2020-03-28] MEDS: PALIPERIDONE 6 MG TAB.ER.24 PO SCH (22:31)
[2020-03-29] MEDS ORDERED: ZIPRASIDONE 20 MG VIAL IM ONE (07:54)
[2020-03-29 07:55] LABS: Glucose,Whole Blood 283 mg/dL (75-99)
[2020-03-29] MEDS: MULTIVITAMINS, THERA 1 EACH TAB PO SCH (08:01)
[2020-03-29] MEDS: metFORMIN 500 MG TAB PO SCH ×2 (08:01→17:59)
[2020-03-29] MEDS: ZIPRASIDONE 20 MG VIAL IM PRN ×2 (08:01→20:58)
[2020-03-29] MEDS: INSULIN ASPART (NovoLOG) 100 UNIT/ML VIAL SQ SCH ×4 (08:02→20:32)
[2020-03-29] MEDS: LORazepam 2 MG/ML INJ IM PRN (08:02)
[2020-03-29] MEDS ORDERED: PALIPERIDONE IM 234 MG/1.5 ML SYG IM STA (08:13)
--- NOTE | 2020-03-29 08:13 | P.PN ---
Progress Note - Text Progress Note Date: 03/29/20 I reviewed medical records ,did interview patient and case was discussed in treatment team RN NOTE:(03/28/20 23:26 - Nurse Note by Sherine [facility] Num: [id number] : 1945 Patient Age: 75 Attempted to offer pt scheduled PO Invega. RN attempted on several occasions but pt refused stating that Invega is bad on the kidneys and she only has one and doesn't want to . Pt states the doctor put a note in saying that she is allowed to refuse medications but pt is currently on a court order. IM geodon given in right deltoid with security present Blood glucose on 03/28 at 2 PM was 367 and this morning was 283 ,patient refusing Insulin saying "I am Insulin resistant" PHYSICAL: legs are more swollen ,I tried to convince taking her dieuretic ,she replied "You mixing me up with another patient" Slept 3 hours,on the phone calling 911 more than once Interval history: Patient was pushing her wheel chair , stated "I was healthy when I was home ,this place making me ill"then she started telling me "You lied to mds coordinator "I tried to discuss [place] court order she replied "The mds coordinator is not a doctor and you are not too ,I need real doctor",RN and I tried to convince to take Her Insulin this morning but she is resistant I ordered IM Geodon and Ativan stat and reconsult medical doctor for her swollen legs,order complete Lab and EKG Mental status exam: Patient was wearing hospital gown, fair grooming and hygiene, good eyes contact ,hyperverbal ,circumstantial ,loose of association ,illogical "affect is irritable ,reports delusion ,suspicious ,paranoia, denies any hallucination ,denies any suicidal or homicidal ideation ,very concrete in her thinking insight and judgment are impaired ASSESSMENT:Bipolar disorder ,manic with psychotic feature ,poor compliance with medication PLAN: Patient is on court order for [place] . Invega 6 mg and transition to long acting injection RX Invega Sustenna,PRN Ativan and Geodon ,medical management for her Diabetes and legs swollen,patient does require inpatient hospitalization for safety and stabilization
[2020-03-29 09:21] LABS: Basophils % (A) 0 %; Eosinophils # (A) 0.1 k/uL (0-0.7); Eosinophils % (A) 2 %; HCT 43.2 % (34.0-46.0); HGB 13.7 gm/dL (11.4-16.0); Lymphocytes # (A) 1.1 k/uL (1.0-4.8); Lymphocytes % (A) 18 %; MCH 28.2 pg (25.0-35.0); MCHC 31.8 g/dL (31.0-37.0); MCV 88.6 fL (80.0-100.0); Mean Platelet Volume 8.1; Monocytes # (A) 0.4 k/uL (0-1.0); Monocytes % (A) 6 %; Neutrophils # (A) 4.4 k/uL (1.3-7.7); Neutrophils % (A) 72 %; Platelet Count 205 k/uL (150-450); RBC 4.87 m/uL (3.80-5.40); RDW 12.6 % (11.5-15.5); WBC 6.1 k/uL (3.8-10.6)
[2020-03-29 09:43] LABS: ALT 23 U/L (4-34); AST 26 U/L (14-36); African American GFR (CKD) >90 (>60 ml/min/1.73 sqM); Albumin 3.6 g/dL (3.5-5.0); Alkaline Phosphatase 122 U/L (38-126); Anion Gap 10 mmol/L; Blood Urea Nitrogen 12 mg/dL (7-17); Calcium 9.4 mg/dL (8.4-10.2); Carbon Dioxide 22 mmol/L (22-30); Chloride 98 mmol/L (98-107); Cholesterol 188 mg/dL (<200); Glucose 338 mg/dL (74-99); HDL Cholesterol 52 mg/dL (40-60); LDL Cholesterol,Calculated 108 mg/dL (0-99); Non-African American GFR(CKD) 88 (>60 ml/min/1.73 sqM); Potassium 4.1 mmol/L (3.5-5.1); Sodium 130 mmol/L (137-145); Total Bilirubin 0.6 mg/dL (0.2-1.3); Total Protein 6.3 g/dL (6.3-8.2); Triglycerides 140 mg/dL (<150)
[2020-03-29] MEDS: LINAGLIPTIN 5 MG TABLET PO SCH ×2 (11:15→11:22)
[2020-03-29] MEDS: TORSEMIDE 20 MG TAB PO SCH ×2 (11:15→11:22)
[2020-03-29] MEDS ORDERED: INSULIN ASPART (NovoLOG) 100 UNIT/ML VIAL SQ ONE (11:24)
[2020-03-29 13:07] LABS: Glucose,Whole Blood 280 mg/dL (75-99)
[2020-03-29 17:56] LABS: Glucose,Whole Blood 237 mg/dL (75-99)
[2020-03-29] MEDS: PALIPERIDONE 6 MG TAB.ER.24 PO SCH ×2 (20:32→20:57)
[2020-03-29 20:39] LABS: Glucose,Whole Blood 248 mg/dL (75-99)
[2020-03-30 07:52] LABS: Glucose,Whole Blood 323 mg/dL (75-99)
[2020-03-30] MEDS: metFORMIN 500 MG TAB PO SCH ×2 (07:55→22:28)
[2020-03-30] MEDS: MULTIVITAMINS, THERA 1 EACH TAB PO SCH (07:55)
[2020-03-30] MEDS: INSULIN ASPART (NovoLOG) 100 UNIT/ML VIAL SQ SCH ×4 (07:57→22:29)
[2020-03-30] MEDS: LINAGLIPTIN 5 MG TABLET PO SCH (07:58)
[2020-03-30] MEDS: TORSEMIDE 20 MG TAB PO SCH (07:58)
[2020-03-30 09:16] LABS: African American GFR (CKD) >90 (>60 ml/min/1.73 sqM); Anion Gap 8 mmol/L; Blood Urea Nitrogen 10 mg/dL (7-17); Calcium 9.5 mg/dL (8.4-10.2); Carbon Dioxide 24 mmol/L (22-30); Chloride 99 mmol/L (98-107); Glucose 327 mg/dL (74-99); Non-African American GFR(CKD) 87 (>60 ml/min/1.73 sqM); Potassium 4.2 mmol/L (3.5-5.1); Sodium 131 mmol/L (137-145)
[2020-03-30 10:32] LABS: Appearance,Urine Cloudy (Clear); Bacteria,Urine Many /hpf; Bilirubin,Urine Negative (Negative); Blood,Urine Trace (Negative); Color,Urine Light Yellow; Glucose,Urine (UA) 4+ (Negative); Ketones,Urine Negative (Negative); Leukocyte Esterase,Urine Large (Negative); Nitrite,Urine Negative (Negative); PH, Urine 5.5 (5.0-8.0); Protein,Urine Negative (Negative); RBC,Urine 10 /hpf (0-5); Specific Gravity,Urine 1.009 (1.001-1.035); Squamous Epithelial Cell,Urine 2 /hpf (0-4); Urobilinogen,Urine <2.0 mg/dL (<2.0); WBC,Urine >182 /hpf (0-5)
[2020-03-30 12:43] LABS: Glucose,Whole Blood 212 mg/dL (75-99)
--- NOTE | 2020-03-30 15:46 | P.PN ---
Subjective Progress Note Date: 03/30/20 Patient seen and examined. No acute events overnight. Patient reports swelling in her legs. States that she used to take hydrochlorothiazide. Has been refusing torsemide during hospital stay. She denies any dysuria. Objective - Vital Signs Vital signs: Vital Signs Temp 98.2 F 03/30/20 06:46 Pulse 100 03/30/20 06:46 Resp 16 03/30/20 06:46 BP 150/78 03/30/20 06:46 Pulse Ox 98 03/29/20 06:59 - Exam General: [non toxic], [no distress], [appears at stated age] Derm: [warm], [dry] Head: [atraumatic], [normocephalic], [symmetric] Eyes: [EOMI], [no lid lag], [anicteric sclera] Mouth: [no lip lesion], [mucus membranes moist] Cardiovascular: [S1S2 reg], [no murmur], [positive DP pulse bilateral], Lungs: [CTA bilateral], [no rhonchi, no rales] , [no accessory muscle use] Abdominal: [soft], [ nontender to palpation], [no guarding], [no appreciable organomegaly] Ext: [no gross muscle atrophy], [2+ lower extremity edema with mild erythema], [no contractures] Neuro: [no focal neuro deficits] Psych: [Alert], [oriented], [appropriate affect] - Labs CBC & Chem 7: 03/29/20 08:51 03/30/20 08:10 Labs: Abnormal Lab Results - Last 24 Hours (Table) 03/29/20 03/29/20 03/30/20 Range/Units 17:55 20:28 07:44 Sodium (137-145) mmol/L Glucose (74-99) mg/dL POC Glucose (mg/dL) 237 H 248 H 323 H (75-99) mg/dL Urine Appearance (Clear) Urine Glucose (UA) (Negative) Urine Blood (Negative) Ur Leukocyte Esterase (Negative) Urine RBC (0-5) /hpf Urine WBC (0-5) /hpf Urine WBC Clumps (None) /hpf Urine Bacteria (None) /hpf 03/30/20 03/30/20 03/30/20 Range/Units 08:10 09:31 12:41 Sodium 131 L (137-145) mmol/L Glucose 327 H (74-99) mg/dL POC Glucose (mg/dL) 212 H (75-99) mg/dL Urine Appearance Cloudy H (Clear) Urine Glucose (UA) 4+ H (Negative) Urine Blood Trace H (Negative) Ur Leukocyte Esterase Large H (Negative) Urine RBC 10 H (0-5) /hpf Urine WBC >182 H (0-5) /hpf Urine WBC Clumps Many H (None) /hpf Urine Bacteria Many H (None) /hpf Assessment and Plan Assessment: Hyponatremia UTI Lower extremity swelling Diabetes mellitus with hyperglycemia Dyslipidemia Sodium 131. 134 when corrected for hyperglycemia. Likely partially hyperkalemic. Plans: Anticipated to improve with diuresis. Repeat BMP tomorrow. Urinalysis shows large leukocyte esterase. Plans: Start Bactrim for 3 days. Follow urine culture. Noncompliant with torsemide. Agreeing to take hydrochlorothiazide. Plans: Lower extremity elevation. Refusing echocardiogram. Start hydrochlorothiazide. Patient has been placed on insulin sliding scale. Apparently, she has been ref using her insulin. Continue regular Accu-Cheks. Hypoglycemic precautions. Patient would benefit from dietary modification. She would also benefit from a statin. We will defer this decision to her PCP. Thank you for this consult. Please call with any additional questions or concerns.
--- NOTE | 2020-03-30 16:42 | P.PN ---
Subjective Progress Note Date: 03/30/20 Principal diagnosis: Diagnosis bipolar 1 manic Subjective: The patient still rambles is better time talking about how her wheelchair need to be fixed Objective: Vital signs temperature 98.2 heart rate 100 respirations 16 blood pressure 150/78 Labs her sugars always a little elevated was better than usual today at 212 Groups patient does not attend Assessment patient blunted affect is resistant to taking medicines but seemed to be a little less irritable and oppositional she tends to be tangential in her thought processes resistant suspicious Mental status: Patient has flight of ideas but is doing with everything around her. Just can stay on topic. She denies suicidal or homicidal thoughts and like most patients is focused on when do I get out, Assessment patient not how will I do well after continues to need hospitalization for stabilization and medication adjustment and she'll be getting on long-acting inVega no changes in medicine adjusted at this Objective - Vital Signs Vital signs: Vital Signs Temp 98.2 F 03/30/20 06:46 Pulse 100 03/30/20 06:46 Resp 16 03/30/20 06:46 BP 150/78 03/30/20 06:46 Pulse Ox 98 03/29/20 06:59 - Labs CBC & Chem 7: 03/29/20 08:51 03/30/20 08:10 Labs: Abnormal Lab Results - Last 24 Hours (Table) 03/29/20 03/29/20 03/30/20 Range/Units 17:55 20:28 07:44 Sodium (137-145) mmol/L Glucose (74-99) mg/dL POC Glucose (mg/dL) 237 H 248 H 323 H (75-99) mg/dL Urine Appearance (Clear) Urine Glucose (UA) (Negative) Urine Blood (Negative) Ur Leukocyte Esterase (Negative) Urine RBC (0-5) /hpf Urine WBC (0-5) /hpf Urine WBC Clumps (None) /hpf Urine Bacteria (None) /hpf 03/30/20 03/30/20 03/30/20 Range/Units 08:10 09:31 12:41 Sodium 131 L (137-145) mmol/L Glucose 327 H (74-99) mg/dL POC Glucose (mg/dL) 212 H (75-99) mg/dL Urine Appearance Cloudy H (Clear) Urine Glucose (UA) 4+ H (Negative) Urine Blood Trace H (Negative) Ur Leukocyte Esterase Large H (Negative) Urine RBC 10 H (0-5) /hpf Urine WBC >182 H (0-5) /hpf Urine WBC Clumps Many H (None) /hpf Urine Bacteria Many H (None) /hpf
[2020-03-30 18:18] LABS: Glucose,Whole Blood 295 mg/dL (75-99)
[2020-03-30] MEDS: hydroCHLOROthiazide 25 MG TAB PO SCH (18:19)
[2020-03-30 22:26] LABS: Glucose,Whole Blood 220 mg/dL (75-99)
[2020-03-30] MEDS: PALIPERIDONE 6 MG TAB.ER.24 PO SCH (22:28)
[2020-03-30] MEDS: SULFAMETHOX-TMP 800-160MG 1 EACH TAB PO SCH (22:28)
[2020-03-31 07:46] LABS: Glucose,Whole Blood 234 mg/dL (75-99)
[2020-03-31] MEDS: metFORMIN 500 MG TAB PO SCH ×2 (07:49→17:35)
[2020-03-31] MEDS: hydroCHLOROthiazide 25 MG TAB PO SCH (07:49)
[2020-03-31] MEDS: LINAGLIPTIN 5 MG TABLET PO SCH (07:50)
[2020-03-31] MEDS: MULTIVITAMINS, THERA 1 EACH TAB PO SCH (07:50)
[2020-03-31] MEDS: SULFAMETHOX-TMP 800-160MG 1 EACH TAB PO SCH ×2 (07:50→21:22)
[2020-03-31] MEDS: INSULIN ASPART (NovoLOG) 100 UNIT/ML VIAL SQ SCH ×4 (07:51→21:22)
[2020-03-31 11:48] LABS: African American GFR (CKD) >90 (>60 ml/min/1.73 sqM); Anion Gap 11 mmol/L; Blood Urea Nitrogen 14 mg/dL (7-17); Calcium 9.7 mg/dL (8.4-10.2); Carbon Dioxide 21 mmol/L (22-30); Chloride 96 mmol/L (98-107); Glucose 309 mg/dL (74-99); Non-African American GFR(CKD) 86 (>60 ml/min/1.73 sqM); Sodium 128 mmol/L (137-145)
[2020-03-31 12:51] LABS: Glucose,Whole Blood 261 mg/dL (75-99)
--- NOTE | 2020-03-31 14:36 | P.PN ---
Subjective Progress Note Date: 03/31/20 Principal diagnosis: Diagnosis bipolar 1 manic Subjective: She said her came and had a good talk but he forgot have the things he wanted from her Objective: Vital signs blood pressure 123/65 temperature 98.2 heart rate 114 respirations 16 Labs: Her sugar today was 261 Groups the patient does not attend Staff assessment patient is disheveled flight of ideas denies suicidality or homicidality or psychosis cooperates with medications Mental status exam: Rambling flight of ideas distracted by renewal think she sees no aggression affect is somewhat labile but pleasant when I was talking to her denies and does not evidence any psychotic responses Assessment patient is still racing in her thoughts with inability to handle everyday issues due to the flight of ideas and loose associations Current medications patient takes paliperidone 6 mg daily at bedtime and has b ackup when necessary which she has not needed Plan no change Objective - Vital Signs Vital signs: Vital Signs Temp 98.2 F 03/31/20 06:42 Pulse 114 H 03/31/20 06:42 Resp 16 03/31/20 06:42 BP 123/65 03/31/20 06:42 Pulse Ox 98 03/29/20 06:59 Intake & Output 03/30/20 03/31/20 03/31/20 18:59 06:59 18:59 Weight 95.7 kg - Labs CBC & Chem 7: 03/29/20 08:51 03/31/20 11:11 Labs: Abnormal Lab Results - Last 24 Hours (Table) 03/30/20 03/30/20 03/31/20 Range/Units 18:14 22:24 07:41 Sodium (137-145) mmol/L Chloride (98-107) mmol/L Carbon Dioxide (22-30) mmol/L Glucose (74-99) mg/dL POC Glucose (mg/dL) 295 H 220 H 234 H (75-99) mg/dL 03/31/20 03/31/20 Range/Units 11:11 12:39 Sodium 128 L (137-145) mmol/L Chloride 96 L (98-107) mmol/L Carbon Dioxide 21 L (22-30) mmol/L Glucose 309 H (74-99) mg/dL POC Glucose (mg/dL) 261 H (75-99) mg/dL Microbiology - Last 24 Hours (Table) 03/30/20 09:31 Urine Culture - Preliminary Urine,Voided
[2020-03-31 17:33] LABS: Glucose,Whole Blood 218 mg/dL (75-99)
[2020-03-31 21:18] LABS: Glucose,Whole Blood 253 mg/dL (75-99)
[2020-03-31] MEDS: PALIPERIDONE 6 MG TAB.ER.24 PO SCH (21:22)
[2020-04-01] MEDS: INSULIN ASPART (NovoLOG) 100 UNIT/ML VIAL SQ SCH ×5 (08:40→20:57)
[2020-04-01] MEDS: MULTIVITAMINS, THERA 1 EACH TAB PO SCH (09:14)
[2020-04-01] MEDS: metFORMIN 500 MG TAB PO SCH ×2 (09:15→17:33)
[2020-04-01] MEDS: SULFAMETHOX-TMP 800-160MG 1 EACH TAB PO SCH ×3 (09:17→20:54)
[2020-04-01] MEDS: LINAGLIPTIN 5 MG TABLET PO SCH (09:18)
--- NOTE | 2020-04-01 09:50 | P.PN ---
Progress Note - Text Progress Note Date: 04/01/20 I reviewed medical records ,did interview patient and case was discussed in treatment team I reviewed medical consult:ACCORDING TO HIS REPORT: ((ASSESSMENT: Hyponatremia UTI Lower extremity swelling Diabetes mellitus with hyperglycemia Dyslipidemia Sodium 131. 134 when corrected for hyperglycemia. Likely partially hyperkalemic. Plans: Anticipated to improve with diuresis. Repeat BMP tomorrow. Urinalysis shows large leukocyte esterase. Plans: Start Bactrim for 3 days. Follow urine culture. Noncompliant with torsemide. Agreeing to take hydrochlorothiazide. Plans: Lower extremity elevation. Refusing echocardiogram. Start hydrochlorothiazide. Patient has been placed on insulin sliding scale. Apparently, she has been refusing her insulin. Continue regular Accu-Cheks. Hypoglycemic precautions. Patient would benefit from dietary modification. She would also benefit from a statin. We will defer this decision to her PCP.)) TODAY VITALS: Temp:98.2,P:114,R:16,BP:123/65 Interval history: Patient was pushing her wheel chair , was wearing her own clothing ,irritable but easy to redirect ,has been compliant with medications ,resistant to talk to me saying "I fired you because you lied in the court",no participation in groups ,not following diabetic diet,slept 6-7 hours last night,blood Glucose:253 ,on Insulin sliding scale refused EKG and Echo Mental status exam: Patient was wearing street clothing, fair grooming and hygiene, good eyes contact ,tangential ,loose of association ,illogical , denies any hallucination ,denies any suicidal or homicidal ideation ,very concrete in her thinking insight and judgment are limited ASSESSMENT:Bipolar disorder ,manic with psychotic feature ,poor compliance with medication PLAN: Patient is on court order for [place] . Received 234 mg Invega Sustenna on 03/29 ,will order 156 mg on Wednesday,PRN Atshana and Freddydon ,medical management for her Diabetes and legs swollen,patient does require inpatient hospitalization for safety and stabilization
[2020-04-01 11:08] LABS: African American GFR (CKD) >90 (>60 ml/min/1.73 sqM); Anion Gap 8 mmol/L; Blood Urea Nitrogen 12 mg/dL (7-17); Calcium 9.5 mg/dL (8.4-10.2); Carbon Dioxide 24 mmol/L (22-30); Chloride 93 mmol/L (98-107); Glucose 359 mg/dL (74-99); Non-African American GFR(CKD) 83 (>60 ml/min/1.73 sqM); Sodium 125 mmol/L (137-145)
[2020-04-01 13:17] LABS: Glucose,Whole Blood 268 mg/dL (75-99)
[2020-04-01] MEDS: SODIUM CHLORIDE TAB 1 GM TAB PO SCH ×3 (14:52→21:00)
[2020-04-01 18:00] LABS: Glucose,Whole Blood 236 mg/dL (75-99)
--- NOTE | 2020-04-01 20:03 | CONS ---
CONSULTATION REASON FOR CONSULT: Hyponatremia. HISTORY OF PRESENT ILLNESS: Patient is a 75-year-old female who was admitted to the mental health unit on 03/14/2020 with acute psychosis and confusion. She was found to have a urinary tract infection and was started on antibiotics. The patient denies any prior history of hyponatremia. Serum sodium on initial admission was about 133. It had subsequently decreased to 128 yesterday and this morning it was down to 125. Patient has been on hydrochlorothiazide, which was held this morning. She is maintained on Bactrim. Blood pressure has been on the higher side with systolic around 150 to 180 initially, currently staying about 123 to 137 mmHg. No reports of excessive fluid intake according to nursing staff. No complaints of nausea, vomiting, abdominal pain or diarrhea. Urine osmolality done on 03/30/2020 was 310. PAST MEDICAL HISTORY: Hypertension, type 2 diabetes. MEDICATIONS: Medications prior to admission included multivitamins, Keflex. It does not appear that the patient was on hydrochlorothiazide at home. SOCIAL HISTORY: Negative for smoking, drug abuse or alcohol abuse. PHYSICAL EXAMINATION: On examination today patient is comfortable. She is a bit irritable. She is not in any acute distress. Blood pressure was 137/74, heart rate 112 per minute. Patient is afebrile. Patient refuses examination at this time. However, her legs do show some degree of edema. I am not sure if this is pitting. PLANNING ADVISOR exam appears to be grossly intact. LABS: Labs are reviewed from today, which show sodium of 125, potassium 4.0, chloride 93. CO2 is 24, BUN 12, serum creatinine 0.72. Urine osmolality on 03/30 was 310. ASSESSMENT: 1. Hyponatremia secondary to use of thiazide diuretics. Patient does not appear to be significantly hypervolemic. I will add sodium chloride tabs for 24 to 48 hours and repeat serum sodium in a.m. There may be some degree of edema and we can add loop diuretics if patient needs to be diuresed. I would continue to hold off on the thiazide diuretics for now. Patient is also encouraged to increase her protein intake and avoid excessive free water intake. 2. Acute psychosis, currently admitted to inpatient psych unit. 3. Type 2 diabetes, maintained on metformin. 4. Urinary tract infection, currently maintained on Bactrim. Urine culture, however, grew Strep agalactiae group B. PLAN: Hold hydrochlorothiazide. Add sodium chloride tabs for 24 to 48 hours. Add Lasix if patient needs to be diuresed. Repeat sodium in a.m. Encourage increased protein intake and maintain some degree of free water restriction. Thank you for this consultation. Will continue to follow the patient with you during her hospitalization. MMODL / IJN: [id number] /
[2020-04-02 07:59] LABS: Glucose,Whole Blood 258 mg/dL (75-99)
[2020-04-02] MEDS: INSULIN ASPART (NovoLOG) 100 UNIT/ML VIAL SQ SCH ×5 (08:02→21:02)
[2020-04-02] MEDS: SULFAMETHOX-TMP 800-160MG 1 EACH TAB PO SCH ×2 (08:03→09:06)
[2020-04-02] MEDS: LINAGLIPTIN 5 MG TABLET PO SCH ×2 (08:03→08:16)
[2020-04-02] MEDS: SODIUM CHLORIDE TAB 1 GM TAB PO SCH (08:03)
[2020-04-02] MEDS: metFORMIN 500 MG TAB PO SCH ×2 (08:03→17:35)
[2020-04-02] MEDS: MULTIVITAMINS, THERA 1 EACH TAB PO SCH (08:03)
--- NOTE | 2020-04-02 08:41 | P.PN ---
Progress Note - Text Progress Note Date: 04/02/20 I reviewed medical records ,did interview patient and case was discussed in treatment team SLEPT: 3 hours,no participation in groups Refused her Sodium this morning and refused Linagliptin LABS: Sodium :125,Chloride:93 This morning: Glucose:258 TODAY VITALS: Temp:98.2,P:89,R:16,BP:147/84 Interval history: Patient was laying on her recliner, was wearing her own clothing ,irritable but easy to redirect ,stated that she does not have Diabetes and she does need Sodium "I AM EATING LOT OF SALT",then stated that she wants DR KANDACE CONTRERAS to be her doctor because "You lied in the court",then started to say that one of geriatric nursing assistant did write on legs with black marker and "You are lying again ,I do not have urinary infection",patient does require lot of reinforcement to assure her compliance with her medications refused EKG and Echo Mental status exam: Patient was wearing street clothing, fair grooming and hygiene, good eyes contact ,tangential ,loose of association ,illogical , denies any hallucination ,denies any suicidal or homicidal ideation ,very concrete in her thinking insight and judgment are limited ASSESSMENT:Bipolar disorder ,manic with psychotic feature ,poor compliance with medication PLAN: Patient is on court order for [place] . Received 234 mg Invega Sustenna on 03/29 ,will order 156 mg on Wednesday,PRN Atshana and Freddydon ,medical management for her Low Sodium , her Diabetes and legs swollen,patient does require inpatient hospitalization for safety and stabilization
--- NOTE | 2020-04-02 11:35 | PN ---
PROGRESS NOTE Patient is seen for followup for hyponatremia. The patient was started on thiazide diuretics this admission. Her sodium had dropped to 125 yesterday. Repeat labs are pending from today. She was given a couple of doses of sodium chloride tabs. Awaiting for sodium from this morning. This morning patient is more cooperative. She denies using any diuretics at home. PHYSICAL EXAMINATION: On examination today, blood pressure is 147/84, heart rate 89 per minute,. she is afebrile. Examination of the heart S1, S2. Examination of the lungs, bilateral breath sounds are heard. Abdomen is soft, nontender. Examination of the lower extremities shows edema 2+ bilaterally. SAFETY GROOVING MACHINE OPERATOR exam grossly intact. LABS: Show sodium 125, potassium 4.0, chloride 93, BUN 12, serum creatinine 0.72 from yesterday. ASSESSMENT: 1. Hyponatremia appears to be hypervolemic. I will check the sodium from this morning and we can discontinue sodium chloride tabs. Given her significant edema, patient needs to be diuresed and we can use loop diuretics rather than thiazide diuretics. The patient is encouraged to increase her oral protein intake and we will repeat sodium again tomorrow morning. 2. Acute psychosis, currently inpatient rehab. 3. Hypertension, most likely volume sensitive, expect improvement with diuresis. 4. Type 2 diabetes, maintained on Glucophage. PLAN: DC sodium chloride tabs and add Lasix once the sodium is back from today. Avoid excessive free water intake. MMODL / IJN: [id number] /
[2020-04-02 12:15] LABS: Calcium 9.9 mg/dL (8.4-10.2); Potassium 4.5 mmol/L (3.5-5.1)
[2020-04-02 12:59] LABS: Glucose,Whole Blood 194 mg/dL (75-99)
[2020-04-02 17:31] LABS: Glucose,Whole Blood 219 mg/dL (75-99)
[2020-04-02 21:02] LABS: Glucose,Whole Blood 222 mg/dL (75-99)
[2020-04-03] MEDS: INSULIN ASPART (NovoLOG) 100 UNIT/ML VIAL SQ SCH ×7 (07:50→21:36)
[2020-04-03] MEDS: MULTIVITAMINS, THERA 1 EACH TAB PO SCH (07:51)
[2020-04-03] MEDS: metFORMIN 500 MG TAB PO SCH ×2 (07:51→17:39)
[2020-04-03 07:52] LABS: Glucose,Whole Blood 222 mg/dL (75-99)
[2020-04-03] MEDS: LINAGLIPTIN 5 MG TABLET PO SCH (07:52)
--- NOTE | 2020-04-03 08:53 | P.PN ---
Progress Note - Text Progress Note Date: 04/03/20 I reviewed medical records ,did interview patient and case was discussed in treatment team SLEPT: 3.5 hours ,did participate in one AT group LABS: Sodium :131 ,according to RN NOTE:( 04/02/20 15:42 - Nurse Note by Agustina Recio Num: [id number] : 1945 Patient Age: 75 1425 Pts sodium is 131 today, Dr Smith notified and advised she will add Lasix in the morning for the pt )) This morning: Glucose:222 Compliant with medications,denies any side-effects Interval history: Patient was laying on her recliner, was wearing her own clothing ,irritable but easy to redirect ,I discussed with her post plan discharge and referral to physical therapy with home care ,she replied "I do not need this ,I can walk fine ",she denies any hallucination ,denies any suicidal or homicidal ideation ,still denying that she does need medications for her physical and mental health saying "At home I just need my Vitamin ,you produce my Diabetes " refused EKG and Echo Mental status exam: Patient was wearing street clothing, fair grooming and hygiene, good eyes contact ,tangential ,loose of association ,illogical , denies any hallucination ,denies any suicidal or homicidal ideation ,very concrete in her thinking insight and judgment are limited ASSESSMENT:Bipolar disorder ,manic with psychotic feature ,poor compliance with medication PLAN: Patient is on court order for [place] . Received 234 mg Invega Sustenna on 03/29 ,will order 156 mg on Wednesday,PRN Shawn and Doron ,medical management for her swollen legs ,and her Diabetes ,patient does require inpatient hospitalization for safety and stabilization
[2020-04-03 09:37] LABS: African American GFR (CKD) >90 (>60 ml/min/1.73 sqM); Anion Gap 7 mmol/L; Blood Urea Nitrogen 12 mg/dL (7-17); Calcium 9.5 mg/dL (8.4-10.2); Carbon Dioxide 24 mmol/L (22-30); Chloride 101 mmol/L (98-107); Glucose 218 mg/dL (74-99); Non-African American GFR(CKD) 88 (>60 ml/min/1.73 sqM); Potassium 4.4 mmol/L (3.5-5.1); Sodium 132 mmol/L (137-145)
[2020-04-03] MEDS: FUROSEMIDE 40 MG TAB PO SCH ×3 (11:02→11:27)
[2020-04-03 12:58] LABS: Glucose,Whole Blood 271 mg/dL (75-99)
[2020-04-03 17:37] LABS: Glucose,Whole Blood 187 mg/dL (75-99)
[2020-04-03 21:34] LABS: Glucose,Whole Blood 230 mg/dL (75-99)
[2020-04-04 07:48] LABS: Glucose,Whole Blood 209 mg/dL (75-99)
[2020-04-04] MEDS: INSULIN ASPART (NovoLOG) 100 UNIT/ML VIAL SQ SCH ×7 (07:53→19:55)
[2020-04-04] MEDS: LINAGLIPTIN 5 MG TABLET PO SCH ×2 (07:54→08:01)
[2020-04-04] MEDS: MULTIVITAMINS, THERA 1 EACH TAB PO SCH (07:54)
[2020-04-04] MEDS: metFORMIN 500 MG TAB PO SCH ×2 (07:54→17:34)
[2020-04-04] MEDS: FUROSEMIDE 40 MG TAB PO SCH ×3 (07:54→12:59)
--- NOTE | 2020-04-04 09:20 | P.PN ---
Progress Note - Text Progress Note Date: 04/04/20 I reviewed medical records ,did interview patient and case was discussed in treatment team SLEPT: 3 hours ,did not participate in groups,staying in her room most of day ,out for meals ,minimal interaction with peers LABS: Sodium :132 ,according to RN NOTE:( 04/03/20 12:25 - Nurse Note by Karla Palafox [facility] Num: [id number] : 1945 Patient Age: 75 The pt. refused Lasix 40 mg po stating: "No, my legs are fine; I don't want to "pee" all the time". TODAY VITALS:P:104,BP:171/83 This morning: Glucose:209 Compliant with most of medications,denies any side-effects Interval history: Patient was laying on her recliner, was wearing hospital gown ,irritable but easy to redirect , very defensive ,refused to talk to me saying "Because of you I am here ,I was healthy at home and I did not need any medication except my Vitamin "then started using profanity,still believing that she is not diabetic or needing Insulin Mental status exam: Patient was wearing street clothing, fair grooming and hygiene, good eyes contact ,tangential ,loose of association ,illogical , denies any hallucination ,denies any suicidal or homicidal ideation ,very concrete in her thinking insight and judgment are limited ASSESSMENT:Bipolar disorder ,manic with psychotic feature ,poor compliance with medication PLAN: Patient is on court order for [place] . Received 234 mg Invega Sustenna on 03/29 ,will order 156 mg on Wednesday,PRN Shawn and Doron ,medical management for her swollen legs ,and her Diabetes ,patient does require inpatient hospitalization for safety and stabilization
[2020-04-04 13:00] LABS: Glucose,Whole Blood 146 mg/dL (75-99)
[2020-04-04 13:05] LABS: African American GFR (CKD) >90 (>60 ml/min/1.73 sqM); Anion Gap 6 mmol/L; Blood Urea Nitrogen 13 mg/dL (7-17); Calcium 9.3 mg/dL (8.4-10.2); Carbon Dioxide 25 mmol/L (22-30); Chloride 102 mmol/L (98-107); Glucose 158 mg/dL (74-99); Non-African American GFR(CKD) >90 (>60 ml/min/1.73 sqM); Potassium 4.3 mmol/L (3.5-5.1); Sodium 133 mmol/L (137-145)
[2020-04-04 15:04] LABS: Glucose,Whole Blood 119 mg/dL (75-99)
--- NOTE | 2020-04-04 16:57 | PN ---
PROGRESS NOTE Patient is seen for followup for hyponatremia. The patient's serum sodium has improved to 132 yesterday. She had been on sodium chloride tabs for about a day, which are now discontinued and patient was started on Lasix for lower extremity edema. She states that she does not want to take the Lasix as it makes her void a lot. PHYSICAL EXAMINATION: On examination today, blood pressure was 171/83, heart rate 104 per minute, patient is afebrile. Examination shows she is hypervolemic with evidence of edema of lower extremities. ASSOCIATE TEAM PHYSICIAN exam is grossly intact. Abdomen is soft, obese, nontender. LABS: Not available from today. Sodium was 132 yesterday. ASSESSMENT: 1. Hyponatremia, currently hypervolemic, started on Lasix. The patient does not want to take the Lasix. I have advised her regarding fluid restriction. I would avoid use of thiazide diuretics. 2. Hypertension, partly volume sensitive. Patient is refusing diuretics. We can add MAYRA inhibitors if blood pressure remains elevated. 3. Acute psychosis, currently in inpatient psych unit. 4. Type 2 diabetes, maintained on Glucophage. PLAN: Continue with oral Lasix, repeat labs in a.m. MMODL / IJN: [id number] /
[2020-04-04 17:31] LABS: Glucose,Whole Blood 257 mg/dL (75-99)
[2020-04-04 19:55] LABS: Glucose,Whole Blood 131 mg/dL (75-99)
[2020-04-05 08:09] LABS: Glucose,Whole Blood 215 mg/dL (75-99)
[2020-04-05] MEDS: FUROSEMIDE 40 MG TAB PO SCH (08:09)
[2020-04-05] MEDS: metFORMIN 500 MG TAB PO SCH ×2 (08:09→17:59)
[2020-04-05] MEDS: LINAGLIPTIN 5 MG TABLET PO SCH (08:09)
[2020-04-05] MEDS: MULTIVITAMINS, THERA 1 EACH TAB PO SCH (08:09)
[2020-04-05] MEDS: INSULIN ASPART (NovoLOG) 100 UNIT/ML VIAL SQ SCH ×7 (08:09→20:28)
--- NOTE | 2020-04-05 08:26 | P.PN ---
Progress Note - Text Progress Note Date: 04/05/20 I reviewed medical records ,did interview patient and case was discussed in treatment team SLEPT: 4-5 hours ,she is participating in some groups ,was on wheelchair pushing herself to dining room for breakfast Still refusing Lasix LABS: Sodium on 04/04 was 133 This morning: Glucose:215 Compliant with most of medications,denies any side-effects Interval history: Patient was laying on her wheelchair , was wearing street clothing ,less irritable,trying to be cooperative ,asking for discharge as "My needs me home ,He has been using my walker because he is not able to walk on his own "discussed with her PT consult as she has been on wheelchair since admission,patient agreed,still in denial and no insight for her medical and mental needs for [place] Mental status exam: Patient was wearing street clothing, fair grooming and hygiene, good eyes contact ,tangential ,loose of association ,illogical , denies any hallucination ,denies any suicidal or homicidal ideation ,very concrete in her thinking insight and judgment are limited ASSESSMENT:Bipolar disorder ,manic with psychotic feature ,poor compliance with medication PLAN: Patient is on court order for [place] . Received 234 mg Invega Sustenna on 03/29 , order 156 mg Today ,order PT consult ,PRN Shawn and Doron ,medical management for her swollen legs ,and her Diabetes ,patient does require inpatient hospitalization for safety and stabilization Estimated discharge in 1-2 days with home care referral
[2020-04-05] MEDS ORDERED: PALIPERIDONE IM 156 MG/ML SYG IM ONE (09:00)
[2020-04-05 13:10] LABS: Glucose,Whole Blood 198 mg/dL (75-99)
[2020-04-05 18:00] LABS: Glucose,Whole Blood 193 mg/dL (75-99)
[2020-04-05 19:57] LABS: Glucose,Whole Blood 239 mg/dL (75-99)
[2020-04-06 07:59] LABS: Glucose,Whole Blood 168 mg/dL (75-99)
[2020-04-06] MEDS: INSULIN ASPART (NovoLOG) 100 UNIT/ML VIAL SQ SCH ×7 (08:03→20:30)
[2020-04-06] MEDS: metFORMIN 500 MG TAB PO SCH ×2 (08:06→18:16)
[2020-04-06] MEDS: FUROSEMIDE 40 MG TAB PO SCH (08:06)
[2020-04-06] MEDS: LINAGLIPTIN 5 MG TABLET PO SCH (08:06)
[2020-04-06] MEDS: MULTIVITAMINS, THERA 1 EACH TAB PO SCH (09:05)
--- NOTE | 2020-04-06 09:33 | P.PN ---
Subjective patient is seen in follow-up for hyponatremia. Sodium level 131 as of April 04. Continues to refuse Lasix. Good urine output. Vital signs are stable. General: The patient appeared well nourished and normally developed. HEENT: Head exam is unremarkable. Neck is without jugular venous distension. LUNGS: Lungs are clear to auscultation and percussion. Breath sounds decreased. HEART: Rate and Rhythm are regular. First and second heart sounds normal. No murmurs, rubs or gallops. ABDOMEN: soft, nontender. EXTREMITITES: 1+ edema. Objective - Vital Signs Vital signs: Vital Signs Temp 98.0 F 04/05/20 15:41 Pulse 94 04/05/20 15:41 Resp 20 04/05/20 15:41 BP 160/79 04/05/20 15:41 Pulse Ox 96 04/05/20 15:41 - Labs CBC & Chem 7: 03/29/20 08:51 04/04/20 11:47 Labs: Abnormal Lab Results - Last 24 Hours (Table) 04/05/20 04/05/20 04/05/20 Range/Units 13:06 17:57 19:55 POC Glucose (mg/dL) 198 H 193 H 239 H (75-99) mg/dL 04/06/20 Range/Units 07:56 POC Glucose (mg/dL) 168 H (75-99) mg/dL Assessment and Plan Plan: assessment: 1. Hypervolemic hyponatremia. 2. benign hypertension. 3. Diabetes mellitus. 4. Acute psychosis. Plan: maintain 1500 fluid restriction per day. Encourage oral intake, particularly protein. Continue with Lasix if patient agreeable. Okay to continue with Invega from nephrology standpoint. add amlodipine 5 mg once daily.
[2020-04-06] MEDS: amLODIPine 5 MG TAB PO SCH (10:52)
[2020-04-06 13:04] LABS: Glucose,Whole Blood 151 mg/dL (75-99)
[2020-04-06 18:12] LABS: Glucose,Whole Blood 186 mg/dL (75-99)
[2020-04-06 20:17] LABS: Glucose,Whole Blood 225 mg/dL (75-99)
--- NOTE | 2020-04-06 20:58 | PN ---
PROGRESS NOTE DATE OF SERVICE: 04/06/2020 CHIEF COMPLAINT: The patient was admitted on petition completed by her due to the patient being agitated, having disorganized behavior and having delusions. INTERVAL HISTORY: The patient has been doing fair. She had a quiet day yesterday. She comes out in the day area. She will wander about with her wheelchair, sometimes in the wheelchair, sometimes walking behind it. She does not attend groups. She seems to pay some attention to things going on around her. She does not really interact too much with others, though will initiate a little contact with staff. She slept 5 hours last night. Today she has been up again she is seen in the day area. She told me today that she needed to go home today because there was no one at the house, so she needed to be there. She just repeated this comment several times. Other than that, she did not really engage in any productive conversation. She denied problems with her medications, namely having received her followup injection of Invega Sustenna 156 mg IM. She did not show any indications of EPS or other movement disorder concerns. MENTAL STATUS: Patient gave fair eye contact. She was restless. She did not respond directly to most questions though made frequent comments about needing to be discharged today. She was quite insistent on this. Her affect was intense. She did seem to smile a little and had a fairly calm manner. She did not appear to be distressed. There was no indication of thought disorder. It was difficult to assess for any thoughts of harm. She was oriented to her circumstances and surroundings. ASSESSMENT: I will continue the current diagnosis and treatment plan. We will continue to make efforts to engage the patient in individual and group therapeutic activities. Psychomotor motor activities will continue the same. I made an effort to review medication issues with the patient, though it was clear she did not follow the conversation. We will focus on stabilization and discharge planning. MMODL / IJN: [id number] /
[2020-04-07] MEDS: amLODIPine 5 MG TAB PO SCH (07:54)
[2020-04-07] MEDS: metFORMIN 500 MG TAB PO SCH ×2 (07:54→18:07)
[2020-04-07] MEDS: MULTIVITAMINS, THERA 1 EACH TAB PO SCH (07:54)
[2020-04-07] MEDS: FUROSEMIDE 40 MG TAB PO SCH (07:55)
[2020-04-07] MEDS: LINAGLIPTIN 5 MG TABLET PO SCH (07:55)
[2020-04-07] MEDS: INSULIN ASPART (NovoLOG) 100 UNIT/ML VIAL SQ SCH ×7 (07:55→20:47)
[2020-04-07 08:03] LABS: Glucose,Whole Blood 199 mg/dL (75-99)
--- NOTE | 2020-04-07 10:32 | P.PN ---
Subjective patient is seen in follow-up for hyponatremia. Sodium level 133 as of April 04. Continues to refuse Lasix. Good urine output. she is requesting h ydrochlorothiazide. Vital signs are stable. General: The patient appeared well nourished and normally developed. HEENT: Head exam is unremarkable. Neck is without jugular venous distension. LUNGS: Lungs are clear to auscultation and percussion. Breath sounds decreased. HEART: Rate and Rhythm are regular. First and second heart sounds normal. No murmurs, rubs or gallops. ABDOMEN: soft, nontender. EXTREMITITES: 1+ edema. Objective - Vital Signs Vital signs: Vital Signs Temp 98.5 F 04/07/20 05:36 Pulse 104 H 04/07/20 05:36 Resp 18 04/06/20 10:30 BP 148/68 04/07/20 05:36 Pulse Ox 94 L 04/07/20 05:36 Intake & Output 04/06/20 04/07/20 04/07/20 18:59 06:59 18:59 Weight 95.4 kg - Labs CBC & Chem 7: 03/29/20 08:51 04/04/20 11:47 Labs: Abnormal Lab Results - Last 24 Hours (Table) 04/06/20 04/06/20 04/06/20 Range/Units 13:00 18:09 20:15 POC Glucose (mg/dL) 151 H 186 H 225 H (75-99) mg/dL 04/07/20 Range/Units 07:50 POC Glucose (mg/dL) 199 H (75-99) mg/dL Assessment and Plan Plan: assessment: 1. Hypervolemic hyponatremia. sodium level 133 as of April 04. 2. benign hypertension. patient refusing multiple medications. 3. Diabetes mellitus. 4. Acute psychosis. 5. Volume overload. Plan: maintain 1500 fluid restriction per day. Encourage oral intake, particularly protein. Continue with Lasix if patient agreeable. Okay to continue with Invega from nephrology standpoint. repeat electrolytes in the morning. If sodium level normal, will start hydrochlorothiazide.
[2020-04-07 13:07] LABS: Glucose,Whole Blood 161 mg/dL (75-99)
--- NOTE | 2020-04-07 16:45 | PN ---
PROGRESS NOTE DATE OF SERVICE: 04/07/2020. CHIEF COMPLAINT: The patient was admitted on petition completed by her due to the patient being agitated, having disorganized behavior and having delusions. INTERVAL HISTORY: The patient has been doing fair. Overall she seems to be relatively stable from day-to- day. She had a quiet day yesterday. She comes out in the day area. She will wander about. She will make various random comments, though it is not clear if she really interact much with others. She does not attend groups. She slept fairly well last night. Today she has been up. She continues doing the same. For the most part she seems to have a calm manner. She has not shown significant problems with thought or behavior. She tolerates her psychotropic medications. MENTAL STATUS: Patient gave fair eye contact. She was somewhat restless. She answered questions with brief responses. Mostly thing she said were either tangential or completely disconnected from the subject at hand. Her affect was in a reasonable range. She had a calm manner and would smile some through the interview. Her mood was fairly even. She did not seem to be distressed in any way. It was difficult to assess for thought disorder. She voiced no thoughts of harm. She was oriented and alert. ASSESSMENT: I will continue the current diagnosis and treatment plan. I will continue psychotropic medications the same. I discussed discharge planning issues with the patient, though she did really follow the conversation very well. We will focus on stabilization and discharge planning. STELLA / JOSE: [id number] /
[2020-04-07 18:05] LABS: Glucose,Whole Blood 191 mg/dL (75-99)
[2020-04-07 20:26] LABS: Glucose,Whole Blood 156 mg/dL (75-99)
[2020-04-08 05:16] VITALS: BP 147/76; PULSE 82; RESP 16; TEMP 97.9
[2020-04-08 07:54] LABS: Glucose,Whole Blood 177 mg/dL (75-99)
[2020-04-08] MEDS: INSULIN ASPART (NovoLOG) 100 UNIT/ML VIAL SQ SCH ×7 (07:57→20:31)
[2020-04-08] MEDS: metFORMIN 500 MG TAB PO SCH ×2 (07:58→17:39)
[2020-04-08] MEDS: LINAGLIPTIN 5 MG TABLET PO SCH ×2 (07:58→08:06)
[2020-04-08] MEDS: FUROSEMIDE 40 MG TAB PO SCH ×2 (07:58→08:06)
[2020-04-08] MEDS: amLODIPine 5 MG TAB PO SCH ×2 (07:58→08:06)
[2020-04-08] MEDS: MULTIVITAMINS, THERA 1 EACH TAB PO SCH (07:59)
[2020-04-08 09:13] LABS: African American GFR (CKD) >90 (>60 ml/min/1.73 sqM); Anion Gap 8 mmol/L; Blood Urea Nitrogen 10 mg/dL (7-17); Calcium 9.3 mg/dL (8.4-10.2); Carbon Dioxide 19 mmol/L (22-30); Chloride 105 mmol/L (98-107); Glucose 222 mg/dL (74-99); Magnesium 1.4 mg/dL (1.6-2.3); Non-African American GFR(CKD) 90 (>60 ml/min/1.73 sqM); Potassium 4.5 mmol/L (3.5-5.1); Sodium 132 mmol/L (137-145)
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
[2020-04-08] MEDS: MAGNESIUM OXIDE 400 MG TAB PO SCH ×2 (10:29→20:34)
[2020-04-08 12:42] LABS: Glucose,Whole Blood 151 mg/dL (75-99)
[2020-04-08 17:34] LABS: Glucose,Whole Blood 198 mg/dL (75-99)
[2020-04-08 20:31] LABS: Glucose,Whole Blood 243 mg/dL (75-99)
== END 2020-04-08 21:07 | disposition home health service (06) | DRG 885 ==
LOC: 3MHU 20:53
PROVIDERS: ADMIT Psychiatry & Neurology Psychiatry; ATTEND Psychiatry & Neurology Psychiatry
DX: F31.2 Bipolar disorder, current episode manic severe with psychotic features (principal); N39.0 Urinary tract infection, site not specified; E87.1 Hypo-osmolality and hyponatremia; E11.65 Type 2 diabetes mellitus with hyperglycemia; B95.1 Streptococcus, group B, as the cause of diseases classified elsewhere; E66.3 Overweight; E78.5 Hyperlipidemia, unspecified; Z91.128 Patient's intentional underdosing of medication regimen for other reason; T43.4X6A Underdosing of butyrophenone and thiothixene neuroleptics, initial encounter; T50.2X5A Adverse effect of carbonic-anhydrase inhibitors, benzothiadiazides and other diuretics, initial encounter; T50.1X6A Underdosing of loop [high-ceiling] diuretics, initial encounter; Z91.14 Patient's other noncompliance with medication regimen; I10 Essential (primary) hypertension; E87.70 Fluid overload, unspecified; R32 Unspecified urinary incontinence; Z68.35 Body mass index [BMI] 35.0-35.9, adult; Z79.899 Other long term (current) drug therapy; Z87.440 Personal history of urinary (tract) infections; Z71.3 Dietary counseling and surveillance; Y63.6 Underdosing and nonadministration of necessary drug, medicament or biological substance; Z82.5 Family history of asthma and other chronic lower respiratory diseases
CPT/HCPCS: 80048; 80053; 80061; 80076; 81001; 83036; 83735; 83930; 83935; 84300; 84439; 84443; 84484; 85025; 87077; 87086; 87186